=== PATIENT | male | born 1965 | race Two or more races ===

== ENCOUNTER → 2016-03-30 | Outpatient (REF) | payer BC | LOC: M SFHCADAM 08:53 | PROVIDERS: ATTEND Family Medicine | DX: R74.8 Abnormal levels of other serum enzymes (principal); R73.01 Impaired fasting glucose ==

== ENCOUNTER 2016-11-15 10:59 | Outpatient (CLI) | payer BC ==
[~2016-11-15] VITALS: Ht 165.1 cm; Wt 94.8 kg
[~2016-11-15 10:59] MED LIST: ASPI1TAB PO; MULT1TAB10 PO; VITA-122 PO
[2016-11-15] MEDS ORDERED: NS 1,000 ML IV ONE (12:15)
--- NOTE | 2016-11-15 12:54 | ROOR ---
Patient Name: Kwaku Keith Procedure Date: 11/15/2016 12:34 PM Date of : 1965 Age: 51 Room: [facility] Gender: Male Note Status: Finalized Procedure: Colonoscopy Indications: Screening for colorectal malignant neoplasm Providers: Deon LINDER MD Referring MD: Kwaku Ornelas MD Requesting Provider: Medicines: Monitored Anesthesia Care Complications: No immediate complications. Procedure: Pre-Anesthesia Assessment: - The heart rate, respiratory rate, oxygen saturations, blood pressure, adequacy of pulmonary ventilation, and response to care were monitored throughout the procedure. The Colonoscope was introduced through the anus and advanced to the terminal ileum, with identification of the appendiceal orifice and IC valve. The colonoscopy was performed without difficulty. The patient tolerated the procedure well. The quality of the bowel preparation was good. Findings: The perianal and digital rectal examinations were normal. A 10 mm polyp was found in the mid ascending colon. The polyp was semi-sessile. The polyp was removed with a cold snare. Resection and retrieval were complete. A 4 mm polyp was found in the sigmoid colon. The polyp was sessile. The polyp was removed with a cold snare. Resection and retrieval were complete. The exam was otherwise without abnormality on direct and retroflexion views. Impression: - One 10 mm polyp in the mid ascending colon, removed with a cold snare. Resected and retrieved. - One 4 mm polyp in the sigmoid colon, removed with a cold snare. Resected and retrieved. - The examination was otherwise normal on direct and retroflexion views. Recommendation: - Repeat colonoscopy in 3 years for surveillance. Deon Linder MD Deon LINDER MD 11/15/2016 12:54:25 PM This report has been signed electronically. Number of Addenda: 0 Note Initiated On: 11/15/2016 12:34 PM Estimated Blood Loss: Estimated blood loss: none.
[2016-11-15 13:15] VITALS: BP 159/85
== END 2016-11-15 13:20 | disposition home or self-care (01) ==
LOC: M OPP 10:59
PROVIDERS: ATTEND Internal Medicine Gastroenterology
DX: Z12.11 Encounter for screening for malignant neoplasm of colon (principal); D12.2 Benign neoplasm of ascending colon; D12.5 Benign neoplasm of sigmoid colon; E78.5 Hyperlipidemia, unspecified; R12 Heartburn; M54.9 Dorsalgia, unspecified; Z87.891 Personal history of nicotine dependence; Z79.82 Long term (current) use of aspirin; Z79.899 Other long term (current) drug therapy; Z80.1 Family history of malignant neoplasm of trachea, bronchus and lung

== ENCOUNTER → 2018-01-22 | Outpatient (REF) | payer BC ==
[2018-01-22 12:47] LABS: BASO % 0.6 % (0.0-1.0); EOS # 0.2 10^3/uL (0.0-0.50); EOS % 2.3 % (0.0-3.0); HEMATOCRIT 46.3 % (42.0-52.0); HEMOGLOBIN 15.1 g/dl (13.5-17.5); LYMPH # 1.8 10^3/uL (1.5-4.5); MEAN CORPUSCULAR HEMOGLOBIN 28.4 pg (27.0-33.0); MEAN CORPUSCULAR HGB CONC 32.6 g/dl (32.0-36.5); MONO # 0.5 10^3/uL (0.0-0.8); MONO % 7.4 % (0.0-5.0); NEUTROPHILS % 61.4 % (36.0-66.0); PLATELET COUNT, AUTOMATED 227 10^3/uL (150-450); RED BLOOD COUNT 5.32 10^6/uL (4.30-6.10); WHITE BLOOD COUNT 6.5 10^3/uL (4.0-10.0)
[2018-01-22 12:55] LABS: ALBUMIN 3.8 GM/DL (3.2-5.2); ALT/SGPT 51 U/L (12-78); BILIRUBIN,TOTAL 0.6 MG/DL (0.2-1.0); BLOOD UREA NITROGEN 21 MG/DL (7-18); CALCIUM LEVEL 8.5 MG/DL (8.5-10.1); CARBON DIOXIDE LEVEL 28 MEQ/L (21-32); CHLORIDE LEVEL 107 MEQ/L (98-107); CHOLESTEROL LEVEL 227 MG/DL (<200); CHOLESTEROL RISK RATIO 4.729 (<5); CREATININE FOR GFR 1.07 MG/DL (0.70-1.30); GLOMERULAR FILTRATION RATE > 60.0 (>56); GLUCOSE, FASTING 107 MG/DL (70-100); HDL CHOLESTEROL 48 MG/DL (>40); LDL CHOLESTEROL 159 MG/DL (<100); NON-HDL-C 179 MG/DL; POTASSIUM SERUM 4.7 MEQ/L (3.5-5.1); SODIUM LEVEL 141 MEQ/L (136-145); TOTAL PROTEIN 6.6 GM/DL (6.4-8.2); TRIGLYCERIDES LEVEL 102 MG/DL (<150)
== END ==
LOC: M SFHCADAM 08:50
PROVIDERS: ATTEND Family Medicine
DX: E66.9 Obesity, unspecified (principal); K21.9 Gastro-esophageal reflux disease without esophagitis

== ENCOUNTER → 2018-06-05 | Outpatient (CLI) | payer BC ==
[~2018-06-05] MED LIST changes: -ASPI1TAB PO; +ASPI81TA26 PO
--- NOTE | 2018-06-08 08:10 | SLEEPHOME ---
DATE OF PROCEDURE: 06/05/2018 ORDERED BY: ANIBAL Shaikh Diagnostic home sleep testing was performed due to concern for the obstructive sleep apnea syndrome in this patient with a history of excessive somnolence. For testing a nocturnal T3 respiratory monitoring device was used. Continuous record was made of pulse, oxygen saturation, airflow, chest and abdominal strain, and body position. 9 hours and 59 minutes of data were reviewed. There are 5 hours and 32 minutes marked as time in bed. During the interval marked time in bed there were 184 respiratory events identified of 10 seconds in duration or greater for a respiratory event index of 33.2 the events were primarily obstructive. Baseline pulse rate 86, pulse rate ranged 64-166. Baseline saturation of 92%, that fell as low as 75%. Testing was performed in both the supine and nonsupine positions. IMPRESSION: Abnormal home sleep testing with repetitive respiratory events and oxygen desaturations to 75% with a respiratory event index of 33.2 is consistent with the obstructive sleep apnea syndrome. RECOMMENDATIONS: The patient should be encouraged to undergo formal sleep evaluation and in laboratory pressure titration. cc: Diamond Magdaleno DO
== END ==
LOC: M SLEEP HO 12:37
PROVIDERS: ATTEND Nurse Practitioner Family
DX: R40.0 Somnolence (principal)

== ENCOUNTER → 2018-12-11 | Outpatient (REF) | payer BC | LOC: M SFHCADAM 19:08 | PROVIDERS: ATTEND Dermatology | DX: D48.9 Neoplasm of uncertain behavior, unspecified (principal) ==

== ENCOUNTER → 2019-08-29 | Outpatient (REF) | payer BC | LOC: M SFHCADAM 08:39 | PROVIDERS: ATTEND Family Medicine | DX: Z00.00 Encounter for general adult medical examination without abnormal findings (principal); Z53.8 Procedure and treatment not carried out for other reasons ==

== ENCOUNTER → 2019-11-29 | Outpatient (REF) | payer BC ==
[2019-11-29 19:14] LABS: BLOOD UREA NITROGEN 19 MG/DL (7-18); CALCIUM LEVEL 9.1 MG/DL (8.5-10.1); CARBON DIOXIDE LEVEL 29 MEQ/L (21-32); CHLORIDE LEVEL 110 MEQ/L (98-107); CREATININE FOR GFR 1.09 MG/DL (0.70-1.30); GLOMERULAR FILTRATION RATE > 60.0 (>56); GLUCOSE, FASTING 152 MG/DL (70-100); POTASSIUM SERUM 4.2 MEQ/L (3.5-5.1); SODIUM LEVEL 143 MEQ/L (136-145)
[2019-12-02 21:06] LABS: Lyme Disease IgG/IgM Antibodie <0.91 ISR (0.00-0.90); Lyme Disease IgM Ab Quantitati <0.80 index (0.00-0.79)
== END ==
LOC: M SFHCADAM 13:48
PROVIDERS: ATTEND Family Medicine
DX: S30.860A Insect bite (nonvenomous) of lower back and pelvis, initial encounter (principal); R03.0 Elevated blood-pressure reading, without diagnosis of hypertension

== ENCOUNTER → 2020-01-18 | Outpatient (CLI) | payer BC ==
[~2020-01-18] MED LIST changes: +D31000TA2 PO; +LISI10TA4 PO; +MULT-40 PO
== END ==
LOC: M LABSMTC 11:46
PROVIDERS: ATTEND Anesthesiology
DX: Z01.818 Encounter for other preprocedural examination (principal); Z20.828 Contact with and (suspected) exposure to other viral communicable diseases

== ENCOUNTER 2020-01-23 05:58 | Day surgery (SDC) | payer BC ==
[~2020-01-23] VITALS: Ht 167.6 cm; Wt 98.4 kg
[~2020-01-23 05:58] MED LIST changes: +LIDOCAINE 1% MDV 20ML VIAL SQ PRN
[2020-01-23] MEDS ORDERED: LR 1,000 ML IV ONE (06:00)
[2020-01-23] MEDS ORDERED: fentaNYL 100 MCG/2 ML INJECTION (J3010) IV PRN ×2 (07:01→11:15)
[2020-01-23] MEDS ORDERED: ePHEDrine SULFATE 25 MG/5 ML(5MG/ML) SYRINGE As Ordered ONE (07:02)
[2020-01-23] MEDS ORDERED: PHENYLephrine HCL 500 MCG/5 ML (100MCG/ML) SYRINGE (J2370) As Ordered ONE (07:02)
[2020-01-23] MEDS ORDERED: fentaNYL 250 MCG/5 ML INJECTION (J3010) As Ordered ONE (07:02)
[2020-01-23] MEDS ORDERED: ROCURONIUM BROMIDE 50 MG/5 ML VIAL As Ordered ONE (07:03)
[2020-01-23] MEDS ORDERED: LIDOCAINE 2% 100MG/5ML SDV (FOR ANES.) As Ordered ONE (07:03)
[2020-01-23] MEDS ORDERED: ONDANSETRON 4MG/2ML VIAL As Ordered ONE ×2 (07:03→11:08)
[2020-01-23] MEDS ORDERED: dexameTHASONE 4 MG/ML 1ML VIAL (J1100 PER 1MG) As Ordered ONE (07:03)
[2020-01-23] MEDS ORDERED: ACETAMINOPHEN 1000MG 100ML IV BTL (OFIRMEV) (J0131 PER 10MG) As Ordered ONE (07:03)
[2020-01-23] MEDS ORDERED: SUGAMMADEX SODIUM 500 MG/5 ML VIAL (BRIDION) As Ordered ONE (07:03)
[2020-01-23] MEDS ORDERED: propofoL 200 MG/20 ML VIAL As Ordered ONE (07:03)
[2020-01-23] MEDS ORDERED: EPINEPHrine 1MG/ML INJ 30ML MD-VIAL As Ordered ONE (07:11)
--- NOTE | 2020-01-23 07:23 | ECGEPIP ---
[facility] Test Date: 2020-01-23 Pat Name: TEN MICHAEL Department: Room: - Gender: Male Bond Clerk: : 1965 Requested By: OZ Bernstein Order Number: [id number] Reading MD: Rod Steiner Measurements Intervals [place] Rate: 70 P: 68 IN: 161 QRS: 4 QRSD: 82 T: 3 QT: 355 QTc: 385 Interpretive Statements SINUS RHYTHM Normal Electronically Signed on 01-23-2020 7:23:19 EST by Rod Steiner
[2020-01-23] MEDS ORDERED: ROPIvacaine 0.5% 30ML INJECTION (J2795 PER 1MG) XX ONE (07:30)
[2020-01-23] MEDS ORDERED: dexameTHASONE 10MG/1ML VIAL PRES.FREE (J1100 PER 1MG) XX ONE (07:30)
[2020-01-23] MEDS ORDERED: EPINEPHrine INJ 1 MG/ML 1ML AMP XX ONE (07:30)
[2020-01-23] MEDS: MIDAZOLAM INJ 2MG/2ML VIAL (J2250 PER 1MG) IV PRN ×2 (07:42→07:50)
[2020-01-23] MEDS ORDERED: ceFAZolin SOD 2 GM in IV 1 EA IV ONE (07:45)
[2020-01-23] MEDS ORDERED: ONDANSETRON 4MG/2ML VIAL IV PRN (11:15)
[2020-01-23] MEDS ORDERED: MEPERIDINE INJ 25 MG/ML VIAL (J2175) IV PRN (11:15)
[2020-01-23] MEDS ORDERED: METOCLOPRAMIDE INJ 10MG/2ML VIAL (J2765 PER 1) IV PRN (11:15)
[2020-01-23] MEDS ORDERED: oxyCODONE 5MG TAB PO PRN (11:15)
[2020-01-23] MEDS ORDERED: LR 1,000 ML IV SCH ×2 (11:15)
--- NOTE | 2020-01-23 12:49 | RO ---
OPERATIVE NOTE DATE OF OPERATION: 01/23/2020 PREOPERATIVE DIAGNOSES: 1. Right shoulder rotator cuff tear. 2. Right shoulder long head of the biceps tear with superior labral tear. 3. Right shoulder impingement. POSTOPERATIVE DIAGNOSES: 1. Right shoulder rotator cuff tear. 2. Right shoulder long head of the biceps tear with superior labral tear. 3. Right shoulder impingement. 4. Right shoulder glenohumeral arthritis. 5. Right shoulder inferior labral tear. PROCEDURES: 1. Right shoulder arthroscopic rotator cuff repair including subscapularis. 2. Right shoulder open subpectoral biceps tenodesis. 3. Right shoulder arthroscopic extensive debridement including subacromial decompression with acromioplasty, labral debridement, chondroplasty, and a synovectomy. SURGEON: George Flores M.D. MOTORCYCLE REPA[employer] SUPERVISOR: Two scrub technicians. ANESTHESIA: General with preoperative nerve block. IV FLUIDS: Lactated ringers. ESTIMATED BLOOD LOSS: 10 mL. IMPLANTS: 1. Arthrex Proximal Biceps Button x1. 2. Arthrex 4.75-mm PEEK SwiveLock anchor x4. CLOSURE: Monocryl and nylon. PROCEDURE: Patient was identified in the preoperative holding area. The right shoulder was marked. He had an interscalene nerve block from anesthesia. He was brought to the operating room and placed supine on a well-padded OR table with a diaz bag. General anesthesia was induced. Bilateral SCDs for DVT prophylaxis. Examination under anesthesia revealed 170 of forward flexion, 90 of external rotation, no increased anterior and posterior translation. He was then placed in the left-side down lateral decubitus position with an axillary roll. All kelly prominences were well-padded. He was secured to the OR table. The right shoulder was placed into the Arthrex StaR Sleeve lateral decubitus traction monteiro with 10 pounds of traction. He received appropriate IV antibiotics within one hour of incision. The right shoulder was then prepped and draped in a normal sterile fashion with ChloraPrep. A time-out was performed per hospital protocol. A posterior viewing portal was made with an 11-blade. A 30 arthroscope was introduced into the joint. Diagnostic arthroscopy was carried out. The humeral head had primarily grade 1 with a few areas of patchy grade 2 chondromalacia. The glenoid was mostly grade 1 and then there were a few unstable flaps centrally, grade 2. But then at the 6:00 o'clock position where there was a large inferior labral tear, there was some advanced chondromalacia. There was hypertrophy of the long head of the biceps as it attached to the superior labrum, which was also torn. There was a split tear of the upper subscapularis. There was a full-thickness tear of the supraspinatus. An anterior working portal was established to the rotator interval and the meniscal biter was used to perform a tenotomy at the long head of the biceps. This was also used to release the upper half of the middle glenohumeral ligament to get better exposure of healthy subscapularis tissue. The shaver was then used to debride the superior and inferior labrum, as well as perform a chondroplasty to the glenoid. An accessory superolateral portal was established and a purple Arthrex cannula placed. The shaver and ring curette were used to clear soft tissue off of the lesser tuberosity. The Scorpion was used to pass FiberTape through the upper one-third of the subscapularis through healthy tissue. These were retrieved out the original anterior portal, loaded through a 4.75-mm PEEK SwiveLock anchor. The awl was used to create a socket in the lesser tuberosity. The anchor was docked, sutures tensioned, and then inserted by hand with excellent fixation. This nicely restored the subscapularis. We then proceeded with an open biceps tenodesis. An incision was made with a 15-blade just lateral to the axilla, with dissection down to the deep fascia with cautery and Metzenbaum scissors. The long head of the biceps was identified and easily dissected out without complications. The very proximal aspect was significantly hypertrophied with extensive tearing. Arthrex Proximal Biceps kit was opened. A running locking whip stitch was placed with the FiberLoop. Excess tendon was trimmed and sent to pathology. Sutures were loaded through the button per routine. The spade-tipped drill bit was then used create a unicortical drill hole within the bicipital groove. Bony debris was removed with irrigation. The button was passed through the drill hole on its consumer banker, sutures were toggled. I slipped the button and docked the tendon along the groove nicely. The curve-free needle was used to pass one limb of the suture back through the tendon. The knots were tied by hand to lock the construct in place. This nicely restored the long head of the biceps. The incision was then irrigated and then closed with 2-0 Vicryl, 2-0 Vicryl, and Monocryl. At the end of the case, Steri-Strips were placed. The arthroscope was placed in the subacromial space where there was moderate bursitis, large subacromial spur, and a large tear of the supraspinatus with an L configuration. Through a lateral working portal, I performed a bursectomy. The CA ligament was partially released, exposing the large spur, and then the bur was used to perform a formal acromioplasty. Shaver and cautery were then used to carefully debride the bursa and expose the superior aspect of the supraspinatus. The cuff grasper was used to grab the tissue and reduce it to the tuberosity to determine the appropriate configuration. This was a modified L-shaped tear with the plan to use some margin convergence stitches posteriorly and then a modified double-row technique. So, the ring curette was used to clear soft tissue off of the exposed tuberosity to create a bleeding surface. The Scorpion was used to pass FiberWire suture at each portion at the far posterior aspect of the tear, both medial and lateral to the tear, where there was a horizontal configuration. Then, knots were tied by hand with the knot pusher using alternating inch technique. Those sutures were cut. TigerWire was then passed with the Scorpion, again, in a margin convergence fashion, working from [id number]. Those sutures, after being tied, were saved for later incorporation into the lateral row. Next, the 4.75-mm PEEK SwiveLock anchor, which was a double loaded islet suture plus tape, was inserted just off of the articular surface. This had excellent fixation. One set of islet sutures were passed to the far anterior portion of the tear in a horizontal mattress fashion. The tapes were passed in the anterior central portion of the tear. Then, the second set of islet sutures were passed in the posterior portion of the tear on each side of the horizontal split, similar to a margin convergence fashion. Sutures were then tied from [id number]. The anterior islet sutures set the leading edge of the supraspinatus nicely. The posterior islet sutures reduced the posterior aspect of the supraspinatus tear to the tuberosity and closed down the gap further. I also placed a FiberLink in the anterior central portion of the tear where there was going to be a dog ear. Next, the appropriate medial row sutures were brought out through the lateral portal and loaded through a 4.75-mm PEEK SwiveLock anchor. An awl was used to create a socket in the greater tuberosity. [place] docked, sutures tensioned. [place] inserted by hand with excellent fixation. These steps were repeated with the remaining sutures for a posterolateral anchor, so there was one medial and two lateral anchors. This nicely completed the double-row repair. The tuberosity was nicely covered with rotator cuff tissue. The shoulder was irrigated and drained. Portals were closed with nylon suture. Steri-Strips were placed over the biceps incision. I then applied a large bulky sterile dressing and then placed the patient into the ARC 2 sling. He was extubated and transferred to the PACU in stable condition. POSTOPERATIVE PLAN: He will start physical therapy in two weeks and he will stick to passive range of motion for the first eight weeks. At eight weeks, they can start active assisted motion, no active range of motion until 12 weeks. No rotator cuff strengthening until 12 weeks.
[2020-01-23 14:25] VITALS: BP 159/77
== END 2020-01-23 14:40 | disposition home or self-care (01) ==
LOC: M SDC 05:58
PROVIDERS: ATTEND Orthopaedic Surgery
DX: M75.121 Complete rotator cuff tear or rupture of right shoulder, not specified as traumatic (principal); S46.111A Strain of muscle, fascia and tendon of long head of biceps, right arm, initial encounter; S43.491A Other sprain of right shoulder joint, initial encounter; M75.41 Impingement syndrome of right shoulder; M19.011 Primary osteoarthritis, right shoulder; I10 Essential (primary) hypertension; E78.5 Hyperlipidemia, unspecified; K21.9 Gastro-esophageal reflux disease without esophagitis; L30.9 Dermatitis, unspecified; G47.30 Sleep apnea, unspecified; Z79.82 Long term (current) use of aspirin; Z79.899 Other long term (current) drug therapy
CPT/HCPCS: 23430; 29823; 29827; 64415; 88304; 93005; 96374; 96375; C1713; J0131; J0171; J0690; J1100; J2250; J2370; J2405; J2765; J2795; J3010

== ENCOUNTER → 2020-08-02 | Outpatient (CLI) | payer BC ==
[~2020-08-02] MED LIST changes: -LIDOCAINE 1% MDV 20ML VIAL SQ PRN; +LISI10TA22 PO; -LISI10TA4 PO
== END ==
LOC: M LABSMTC 08:43
PROVIDERS: ATTEND Anesthesiology
DX: Z11.52 Encounter for screening for COVID-19 (principal)

== ENCOUNTER 2020-08-07 09:12 | Day surgery (SDC) | payer BC ==
[~2020-08-07] VITALS: Ht 167.6 cm; Wt 99.3 kg
[~2020-08-07 09:12] MED LIST changes: +NS 1,000 ML IV ONE
--- NOTE | 2020-08-07 10:56 | ROOR ---
Patient Name: Kwaku Keith Procedure Date: 08/07/2020 10:38 AM Date of : 1965 Age: 55 Room: [facility] Gender: Male Note Status: Finalized Procedure: Colonoscopy Indications: High risk colon cancer surveillance: Personal history of colonic polyps, Last colonoscopy: November 2016 Providers: Deon Linder MD Referring MD: Diamond Magdaleno DO Requestbenjamin Provider: Medicines: Monitored Anesthesia Care Complications: No immediate complications. Procedure: Pre-Anesthesia Assessment: - The heart rate, respiratory rate, oxygen saturations, blood pressure, adequacy of pulmonary ventilation, and response to care were monitored throughout the procedure. The Colonoscope was introduced through the anus and advanced to the terminal ileum, with identification of the appendiceal orifice and IC valve. The colonoscopy was performed without difficulty. The patient tolerated the procedure well. The quality of the bowel preparation was good. Findings: The perianal and digital rectal examinations were normal. A diminutive polyp was found in the proximal ascending colon. The polyp was sessile. The polyp was removed with a cold snare. Resection and retrieval were complete. The exam was otherwise without abnormality on direct and retroflexion views. Impression: - One diminutive polyp in the proximal ascending colon, removed with a cold snare. Resected and retrieved. - The examination was otherwise normal on direct and retroflexion views. Recommendation: - Repeat colonoscopy in 5 years for surveillance. Procedure Code(s): --- Professional --- 36157, Colonoscopy, flexible; with removal of tumor(s), polyp(s), or other lesion(s) by snare technique Diagnosis Code(s): --- Professional --- K63.5, Polyp of colon Z86.010, Personal history of colonic polyps CPT copyright 2019 [employer]. All rights reserved. The codes documented in this report are preliminary and upon train operations manager review may be revised to meet current compliance requirements. Deon Linder MD Deon Linder MD 08/07/2020 10:56:05 AM Electronically signed by Deon Linder MD Number of Addenda: 0 Note Initiated On: 08/07/2020 10:38 AM Estimated Blood Loss: Estimated blood loss: none.
[2020-08-07 11:14] VITALS: BP 140/83
[2020-08-07] MEDS ORDERED: propofoL 200 MG/20 ML VIAL As Ordered ONE (11:17)
[2020-08-07] MEDS ORDERED: LIDOCAINE 2% 100MG/5ML SDV (FOR ANES.) As Ordered ONE (11:17)
== END 2020-08-07 11:20 | disposition home or self-care (01) ==
LOC: M OPP 09:12
PROVIDERS: ATTEND Internal Medicine Gastroenterology
DX: Z12.11 Encounter for screening for malignant neoplasm of colon (principal); Z86.010 Personal history of colon polyps; D12.2 Benign neoplasm of ascending colon; Z79.82 Long term (current) use of aspirin; Z79.899 Other long term (current) drug therapy; Z87.891 Personal history of nicotine dependence

== ENCOUNTER 2020-12-09 07:29 | Outpatient (CLI) | payer BC ==
[~2020-12-09] VITALS: Ht 167.6 cm; Wt 95.3 kg
[~2020-12-09 07:29] MED LIST changes: +ALBUTEROL 90 MCG/ACT 8GM HFA INHALER INH PRN; +ALBUTEROL SULFATE 2.5 MG/0.5 ML INH NEB SOLN INH PRN; +EPINEPHrine INJ 1 MG/ML 1ML AMP IM PRN; -NS 1,000 ML IV ONE; +NS 1,000 ML IV SCH; +diphenhydrAMINE 50MG/ML VIAL (J1200) IV PRN; +methylPREDNISolone 125MG 2ML VIAL IV PRN
[2020-12-09] MEDS ORDERED: CASIRIVIMAB/IMDEVIMAB 1,200 MG in NS 250 ML IV ONE (07:30)
[2020-12-09 09:18] VITALS: BP 127/65
[2020-12-09 09:48] VITALS: BP 126/64
[2020-12-09 10:18] VITALS: BP 129/61
[2020-12-09 11:18] VITALS: BP 141/71
== END 2020-12-09 11:18 | disposition home or self-care (01) ==
LOC: M OPCLI4PR 07:29
PROVIDERS: ATTEND Physician Assistant Medical
DX: U07.1 COVID-19 (principal)
CPT/HCPCS: 96361; M0243

== ENCOUNTER → 2021-02-03 | Outpatient (CLI) | payer BC ==
[~2021-02-03] MED LIST changes: -ALBUTEROL 90 MCG/ACT 8GM HFA INHALER INH PRN; -ALBUTEROL SULFATE 2.5 MG/0.5 ML INH NEB SOLN INH PRN; -EPINEPHrine INJ 1 MG/ML 1ML AMP IM PRN; -NS 1,000 ML IV SCH; -diphenhydrAMINE 50MG/ML VIAL (J1200) IV PRN; -methylPREDNISolone 125MG 2ML VIAL IV PRN
--- NOTE | 2021-02-03 15:03 | REP ---
INDICATION: LOCALIZED SWELLING, MASS AND LUMP, UNSPECIFIED. COMPARISON: None. TECHNIQUE: Real-time sonographic evaluation of the left upper back over a palpable mass with Doppler FINDINGS: No cystic or solid masses are identified. IMPRESSION: A negative ultrasound examination does not obviate further anatomical imaging with modalities such as gadolinium-enhanced MRI if a soft tissue mass is of clinical concern. <Electronically signed by Tawanda Arnett > 02/03/21 [id number]
== END ==
LOC: M RAD 13:14
PROVIDERS: ATTEND Family Medicine
DX: R22.9 Localized swelling, mass and lump, unspecified (principal)

== ENCOUNTER → 2021-02-16 | Outpatient (REF) | payer BC | LOC: M LAB REF 16:09 | PROVIDERS: ATTEND Nurse Practitioner Family | DX: D22.5 Melanocytic nevi of trunk (principal) ==

== ENCOUNTER → 2021-03-09 | Outpatient (REF) | payer BC | LOC: M SFHCADAM 08:37 | PROVIDERS: ATTEND Family Medicine | DX: Z53.21 Procedure and treatment not carried out due to patient leaving prior to being seen by health care provider (principal) ==

== ENCOUNTER 2021-05-11 17:53 | Emergency (ER) | payer BC ==
[~2021-05-11] VITALS: Ht 167.6 cm; Wt 102.5 kg
[~2021-05-11 17:53] MED LIST changes: -D31000TA2 PO; +VITA100093 PO
[2021-05-11 17:54] VITALS: BP 139/65
[2021-05-11] MEDS ORDERED: ATOR40TA75 (18:15)
[2021-05-11] MEDS ORDERED: LISI20TA33 (18:15)
[2021-05-11] MEDS ORDERED: BOOSTRIX/ADACEL VACCINE (DIPHTH/PERTUSS/ACELL/TETANUS) 0.5ML SYR IM ONE (19:50)
[2021-05-11] MEDS ORDERED: TETRACAINE 0.5% OPHTH SOLN 4ML OS ONE (19:50)
[2021-05-11] MEDS ORDERED: FLUORESCEIN OPHTH 1 MG STRIP OS ONE (19:50)
[2021-05-11] MEDS ORDERED: ERYT5OIN25 OS (20:21)
== END 2021-05-11 20:48 | disposition home or self-care (01) ==
LOC: M ED 17:53
DX: S05.02XA Injury of conjunctiva and corneal abrasion without foreign body, left eye, initial encounter (principal); X58.XXXA Exposure to other specified factors, initial encounter; Y92.89 Other specified places as the place of occurrence of the external cause; Y99.0 Civilian activity done for income or pay; I10 Essential (primary) hypertension; E78.5 Hyperlipidemia, unspecified; Z79.899 Other long term (current) drug therapy; Z79.82 Long term (current) use of aspirin

== ENCOUNTER → 2023-04-14 | Outpatient (REF) | payer BC ==
[~2023-04-14] MED LIST changes: +ATOR40TA75; +ERYT5OIN25 OS; +LISI20TA33
[2023-04-14 14:15] LABS: BASO # 0.1 10^3/uL (0.0-0.2); BASO % 0.7 % (0.0-1.0); EOS # 0.2 10^3/uL (0.0-0.5); EOS % 2.4 % (0.0-3.0); HEMOGLOBIN 15.6 g/dl (13.5-17.5); LYMPH % 28.3 % (24.0-44.0); MEAN CORPUSCULAR HEMOGLOBIN 28.4 pg (27.0-33.0); MEAN CORPUSCULAR HGB CONC 32.5 g/dl (32.0-36.5); MEAN CORPUSCULAR VOLUME 87.4 fl (80.0-96.0); MONO # 0.6 10^3/uL (0.0-0.8); MONO % 8.8 % (2.0-8.0); NEUTROPHILS # 4.3 10^3/uL (1.5-8.5); NEUTROPHILS % 59.2 % (36.0-66.0); PLATELET COUNT, AUTOMATED 221 10^3/uL (150-450); RED BLOOD COUNT 5.49 10^6/uL (4.30-6.10); WHITE BLOOD COUNT 7.2 10^3/uL (4.0-10.0)
[2023-04-14 14:30] LABS: HEMOGLOBIN A1c 6.2 % (4.0-6.0)
[2023-04-14 14:47] LABS: ALBUMIN 3.9 G/DL (3.2-5.2); ALKALINE PHOSPHATASE 132 U/L (46-116); ALT/SGPT 36 U/L (7.0-40); AST/SGOT 18 U/L (<34); BILIRUBIN,TOTAL 0.7 MG/DL (0.3-1.2); BLOOD UREA NITROGEN 18 MG/DL (9-23); CALCIUM LEVEL 8.6 MG/DL (8.5-10.1); CARBON DIOXIDE LEVEL 24 MMOL/L (20-31); CHLORIDE LEVEL 109 MMOL/L (98-107); CHOLESTEROL LEVEL 263 MG/DL (<200); CHOLESTEROL RISK RATIO 5.09 (<5); CREATININE FOR GFR 0.98 MG/DL (0.70-1.30); GLOMERULAR FILTRATION RATE > 60.0 (>56); GLUCOSE, FASTING 93 MG/DL (60-100); HDL CHOLESTEROL 51.6 MG/DL (>40); LDL CHOLESTEROL 173.4 MG/DL (<100); NON-HDL-C 211.4 MG/DL; POTASSIUM SERUM 4.9 MMOL/L (3.5-5.1); SODIUM LEVEL 140 MMOL/L (136-145); TOTAL PROTEIN 6.6 G/DL (5.7-8.2); TRIGLYCERIDES LEVEL 190 MG/DL (<150)
[2023-04-14 14:48] LABS: THYROID STIMULATING HORMONE 3.901 uIU/ML (0.55-4.78)
== END ==
LOC: M SFHCADAM 08:05
PROVIDERS: ATTEND Family Medicine
DX: Z00.00 Encounter for general adult medical examination without abnormal findings (principal); E55.9 Vitamin D deficiency, unspecified

== ENCOUNTER → 2023-06-26 | Outpatient (CLI) | payer BC | LOC: M RAD 10:26 | PROVIDERS: ATTEND Family Medicine | DX: Z87.891 Personal history of nicotine dependence (principal) ==

== ENCOUNTER → 2023-07-27 | Outpatient (CLI) | payer BC | LOC: M CARPUL 08:39 | PROVIDERS: ATTEND Nurse Practitioner Family | DX: R91.8 Other nonspecific abnormal finding of lung field (principal) ==

== ENCOUNTER → 2023-09-26 | Outpatient (CLI) | payer BC ==
[~2023-09-26] MED LIST changes: +ISOVUE-370 76% 100ML VIAL As Ordered ONE
== END ==
LOC: M RAD 08:17
PROVIDERS: ATTEND Family Medicine
DX: R91.1 Solitary pulmonary nodule (principal)
CPT/HCPCS: 71260; Q9967

== ENCOUNTER 2024-05-05 15:59 | Emergency (ER) | payer BC ==
[~2024-05-05] VITALS: Ht 167.6 cm; Wt 105.3 kg
[~2024-05-05 15:59] MED LIST changes: -ISOVUE-370 76% 100ML VIAL As Ordered ONE
[2024-05-05] MEDS: ACETAMINOPHEN 325 MG TAB PO ONE (18:20)
[2024-05-05 19:46] VITALS: BP 129/84; TEMP 97.5; O2SAT 96
== END 2024-05-05 19:49 | disposition home or self-care (01) ==
LOC: M ED 15:59
DX: M25.512 Pain in left shoulder (principal); F10.10 Alcohol abuse, uncomplicated; Z79.1 Long term (current) use of non-steroidal anti-inflammatories (NSAID); Z79.2 Long term (current) use of antibiotics; Z79.810 Long term (current) use of selective estrogen receptor modulators (SERMs); Z79.899 Other long term (current) drug therapy

== ENCOUNTER → 2024-09-30 | Outpatient (CLI) | payer MEDICAID, OTHER | LOC: M RAD 08:31 | PROVIDERS: ATTEND Internal Medicine Pulmonary Disease | DX: Z87.891 Personal history of nicotine dependence (principal) ==